=== PATIENT | female | born 1975 | race Caucasian/White ===

== ENCOUNTER 2017-06-11 20:47 | Emergency (ER) | payer BC, OTHER ==
[2017-06-11] MEDS ORDERED: Gentamicin 0.3% Ophth Soln 5 ML Bottle EYELF ONE (20:48)
[2017-06-11] MEDS ORDERED: Tetracaine HCl/PF 0.5% 4 ML Bottle EYELF ONE (21:52)
[2017-06-11] MEDS ORDERED: Fluorescein 1 MG Ophth Strip EYELF ONE (21:52)
[2017-06-11] MEDS ORDERED: Gentamicin 0.3% Ophth Soln 5 ML Bottle ONE (22:12)
--- NOTE | 2017-06-11 22:15 | EDM.PDOC ---
ED HPI GENERAL MEDICAL PROBLEM - General Chief Complaint: Eye Problems Stated Complaint: EYE PROBLEM [id number] Time Seen by Provider: 06/11/17 22:11 Source of Information: Reports: Patient History Limitations: Reports: No Limitations - History of Present Illness INITIAL COMMENTS - FREE TEXT/NARRATIVE: accidentally got some facial exfoliant in left eye. Left Eye Pain Score (Numeric/FACES): 4 - Related Data Allergies Allergy/AdvReac Type Severity Reaction Status Date / Time No Known Allergies Allergy Verified 06/11/17 20:52 Home Meds: Home Meds . [No Known Home Meds] 06/11/17 [History] Past Medical History - Past Surgical History HEENT Surgical History: Reports: Tonsillectomy Social & Family History - Tobacco Use Smoking Status *Q: Never Smoker Second Hand Smoke Exposure: No - Caffeine Use Caffeine Use: Reports: None - Recreational Drug Use Recreational Drug Use: No ED ROS GENERAL - Review of Systems Review Of Systems: ROS reveals no pertinent complaints other than HPI. ED EXAM GENERAL W FULL EYE - Physical Exam Exam: See Below Exam Limited By: No Limitations General Appearance: Alert, WD/WN, Mild Distress, Other (eye discomfort) Eye Exam: Left Eye: Corneal Abrasion (mid cornea), Foreign Body (mid cornea, irrigation removal) Eyelids: Bilateral: Normal Appearance Conjunctiva & Sclera: Left: Injected Cornea Exam: Left: Corneal Abrasion, Foreign Body Extraocular Movements: Bilateral: Intact Pupillary Size: Bilateral: 5 mm Pupillary Reaction: Bilateral: Brisk Anterior Chamber: Bilateral: Normal Appearance Ears: Hearing Grossly Normal Throat/Mouth: Normal Voice, No Airway Compromise Head: Atraumatic Neck: Non-Tender, Full Range of Motion Respiratory/Chest: No Respiratory Distress Cardiovascular: Regular Rate, Rhythm GI/Abdominal: Soft, Non-Tender Neurological: Alert, Oriented, Normal Cognition, Normal Gait, No Motor/Sensory Deficits Psychiatric: Anxious Skin Exam: Warm, Dry, Normal Color Lymphatic: No Adenopathy Course - Vital Signs Last Recorded V/S: Last Vital Signs Temp 36.4 C 06/11/17 20:58 Pulse 95 06/11/17 20:58 Resp 16 06/11/17 20:58 BP 130/71 06/11/17 20:58 Pulse Ox 100 06/11/17 20:58 - Orders/Labs/Meds Meds: Medications Discontinued Medications Generic Name Dose Route Start Last Admin Trade Name Francis PRN Reason Stop Dose Admin Fluorescein Sodium 1 mg 06/11/17 21:52 06/11/17 21:58 Ful-Sharita EYELF 06/11/17 21:53 1 mg ONETIME ONE Administration Tetracaine HCl 2 ml 06/11/17 21:52 06/11/17 21:56 Tetracaine 0.5% Steri-Unit Lorena EYELF 06/11/17 21:53 2 ml ASDIRECTED ONE Administration Departure - Departure Time of Disposition: 22:14 Disposition: Home, Self-Care 01 Condition: Good Clinical Impression: Corneal abrasion Qualifiers: Encounter type: initial encounter Laterality: left Qualified Code(s): S05.02XA - Injury of conjunctiva and corneal abrasion without foreign body, left eye, initial encounter - Discharge Information Instructions: Corneal Abrasion, [id number] Additional Instructions: 1) use eye drops next 3 to 5 days 2) must recheck if there is any change or concern 3) don't rub eye rx togo; gentamycin eye drops 2 drops qid left eye x 5 days
== END 2017-06-11 22:18 | disposition home or self-care (01) ==
LOC: DL.ED 20:47
DX: S05.02XA Injury of conjunctiva and corneal abrasion without foreign body, left eye, initial encounter (principal); X58.XXXA Exposure to other specified factors, initial encounter
CPT/HCPCS: 99283; A9270